=== PATIENT | male | born 1960 | race Caucasian/White ===

== ENCOUNTER → 2018-03-13 | Outpatient (CLI) | payer OTHER ==
[2018-03-13] MEDS: BUPIVACAINE 0.5% 50 ML VIAL. IJ (08:58)
[2018-03-13] MEDS: IOHEXOL 300 MG/ML 50 ML VIAL. IJ (08:58)
[2018-03-13] MEDS: methylPREDNISolone ACETATE 80 MG/ML VIAL. IM (08:59)
[2018-03-13] MEDS: LIDOCAINE WITH 8.4% SOD BICARB 3 ML DISP.SYRIN. INJ (08:59)
== END | disposition home or self-care (01) ==
LOC: RAD 08:05
DX: M16.12 Unilateral primary osteoarthritis, left hip (principal)
CPT/HCPCS: 20610; 77002; J1040; J3490; Q9967

== ENCOUNTER 2019-03-13 08:47 | Inpatient (IN) | payer OTHER ==
[~2019-03-13] VITALS: Ht 167.6 cm; Wt 63.5 kg
--- NOTE | 2019-03-13 09:14 | PHYS DOC ---
Adult General Chief Complaint Chief Complaint: CHEST PAIN HPI HPI Patient is a 59 year old male who presents with with Dr. Maradiaga office because he is needing a new hip when they noticed his blood pressures very high. Rupert wade's blood pressure is in the 200s over 100s. Patient is on 3 different blood pressure medications. Patient states he's been taking off his blood pressure medications. Patient states that for the last couple weeks he's been having chest pressure that comes and goes and it's right center of his chest. Patient states he also will have left arm tingling that comes and goes. Patient currently rates his chest pressure at a 7 out of 10. Review of Systems Review of Systems Constitutional: Denies fever or chills [] Eyes: Denies change in visual acuity, redness, or eye pain [] HENT: Denies nasal congestion or sore throat [] Respiratory: Denies cough or shortness of breath [] Cardiovascular: Mid Chest pressure and hypertension GI: Denies abdominal pain, nausea, vomiting, bloody stools or diarrhea [] : Denies dysuria or hematuria [] Musculoskeletal: Denies back pain or joint pain [] Integument: Denies rash or skin lesions [] Neurologic: Frontal headache, dizziness, denies focal weakness or sensory changes [] Endocrine: Denies polyuria or polydipsia [] All other systems were reviewed and found to be within normal limits, except as documented in this note. Current Medications Current Medications Current Medications Medications (Trade) Dose Ordered Sig/Guadalupe Start Time Stop Time Status Last Admin Dose Admin Aspirin (Dago Aspirin) 325 mg 1X ONCE 03/13/19 09:45 03/13/19 09:46 DC 03/13/19 10:00 325 MG Clonidine HCl (Catapres) 0.1 mg 1X ONCE 03/13/19 09:15 03/13/19 09:16 DC 03/13/19 09:08 0.1 MG Fentanyl Citrate (Fentanyl 2ml Vial) 50 mcg 1X ONCE 03/13/19 10:30 03/13/19 10:31 DC 03/13/19 10:47 50 MCG Sodium Chloride 1,000 ml @ 1,000 mls/hr 1X ONCE 03/13/19 10:30 03/13/19 11:29 03/13/19 10:47 1,000 MLS/HR Allergies Allergies Allergies Coded Allergies Type Severity Reaction Last Updated Verified No Known Drug Allergies 03/13/18 No Physical Exam Physical Exam Constitutional: Well developed, well nourished, no acute distress, non-toxic appearance. Hypertensive. [] HENT: Normocephalic, atraumatic, bilateral external ears normal, oropharynx moist, no oral exudates, nose normal. [] Eyes: PERRLA, EOMI, conjunctiva normal, no discharge. [] Neck: Normal range of motion, no tenderness, supple, no stridor. [] Cardiovascular:Heart rate regular rhythm, no murmur. [] Lungs & Thorax: Bilateral breath sounds clear to auscultation [] Abdomen: Bowel sounds normal, soft, no tenderness, no masses, no pulsatile masses. [] Skin: Warm, dry, no erythema, no rash. [] Back: No tenderness, no CVA tenderness. [] Extremities: No tenderness, no cyanosis, no clubbing, ROM intact, no edema. [] Neurologic: Alert and oriented X 3, normal motor function, normal sensory function, no focal deficits noted. [] Psychologic: Affect normal, judgement normal, mood normal. [] Current Patient Data Vital Signs Vital Signs Date Time Temp Pulse Resp B/P (MAP) Pulse Ox O2 Delivery O2 Flow Rate FiO2 03/13/19 10:47 16 97 Room Air 03/13/19 09:08 50 209/128 03/13/19 08:50 98.4 98.4 Lab Values Laboratory Tests Test 03/13/19 09:10 White Blood Count 5.8 x10^3/uL (4.0-11.0) Red Blood Count 5.04 x10^6/uL (4.30-5.70) Hemoglobin 14.9 g/dL (13.0-17.5) Hematocrit 42.9 % (39.0-53.0) Mean Corpuscular Volume 85 fL (79-100) Mean Corpuscular Hemoglobin 30 pg (25-35) Mean Corpuscular Hemoglobin Concent 35 g/dL (31-37) Red Cell Distribution Width 14.1 % (11.5-14.5) Platelet Count 199 x10^3/uL (140-400) Neutrophils (%) (Auto) 66 % (31-73) Lymphocytes (%) (Auto) 27 % (24-48) Monocytes (%) (Auto) 6 % (0-9) Eosinophils (%) (Auto) 1 % (0-3) Basophils (%) (Auto) 0 % (0-3) Neutrophils # (Auto) 3.8 x10^3/uL (1.8-7.7) Lymphocytes # (Auto) 1.6 x10^3/uL (1.0-4.8) Monocytes # (Auto) 0.3 x10^3/uL (0.0-1.1) Eosinophils # (Auto) 0.1 x10^3/uL (0.0-0.7) Basophils # (Auto) 0.0 x10^3/uL (0.0-0.2) Prothrombin Time 12.0 SEC (11.7-14.0) Prothrombin Time INR 0.9 (0.8-1.1) Sodium Level 145 mmol/L (136-145) Potassium Level 3.9 mmol/L (3.5-5.1) Chloride Level 108 mmol/L (98-107) H Carbon Dioxide Level 28 mmol/L (21-32) Anion Gap 9 (6-14) Blood Urea Nitrogen 13 mg/dL (8-26) Creatinine 0.8 mg/dL (0.7-1.3) Estimated GFR (Cockcroft-Gault) 98.3 BUN/Creatinine Ratio 16 (6-20) Glucose Level 93 mg/dL (70-99) Calcium Level 9.1 mg/dL (8.5-10.1) Total Bilirubin 0.3 mg/dL (0.2-1.0) Aspartate Amino Transferase (AST) 21 U/L (15-37) Alanine Aminotransferase (ALT) 27 U/L (16-63) Alkaline Phosphatase 63 U/L (46-116) Troponin I Quantitative < 0.017 ng/mL (0.000-0.055) NF-Gnh-Q-Type Natriuretic Peptide 67 pg/mL (0-124) Total Protein 7.5 g/dL (6.4-8.2) Albumin 3.5 g/dL (3.4-5.0) Albumin/Globulin Ratio 0.9 (1.0-1.7) L Laboratory Tests 03/13/19 09:10 Laboratory Tests 03/13/19 09:10 EKG EKG NSR and no STEMI[] Interpretation Time: [address] Sadler Radiology/Procedures Radiology/Procedures [] Impressions: [facility] [address] [place] [address] IMAGING REPORT Signed PATIENT: RASHAD KAMINSKI ACCOUNT: [id number] : 1960 LOCATION: ER AGE: 59 SEX: M EXAM STATUS: REG ER ORD. PHYSICIAN: HUAN HO APRN REASON: chest pressure PROCEDURE: PORTABLE CHEST 1V PORTABLE CHEST 1V History: Chest pressure. Comparison: None. Findings: No consolidation or pleural effusion. Normal heart size. Mild elevation of the right hemidiaphragm. Impression: 1. No acute cardiopulmonary process. Electronically signed by: Taj Thomas DO (03/13/2019 9:20 AM) [id number] DICTATED and SIGNED BY: TAJ THOMAS DO DATE: 03/13/[address]19 [id number] [place] [address] IMAGING REPORT Signed PATIENT: RASHAD KAMINSKI ACCOUNT: [id number] : 1960 LOCATION: ER AGE: 59 SEX: M EXAM STATUS: REG ER ORD. PHYSICIAN: HUAN HO APRN REASON: dizziness PROCEDURE: CT HEAD WO CONTRAST EXAM: CT Head without IV contrast CLINICAL HISTORY: Dizziness COMPARISON: None. TECHNIQUE: Routine CT of the head without contrast. Soft tissues and bone windows were reviewed. PQRS compliance statement - One or more of the following individualized dose reduction techniques were utilized for this study: 1. Automated exposure control 2. Adjustment of the mA and/or kV according to patient size 3. Use of iterative reconstruction technique FINDINGS: There is no evidence of hemorrhage, mass or extra-axial fluid collection. Uriarte-white differentiation is maintained with no evidence of edema. There is no mass effect or shift of the intracranial structures. The ventricles, basilar cisterns and cortical sulci are normal in size and configuration for the patients stated age. The cerebellum and brainstem are unremarkable. The calvarium demonstrates no evidence of fracture or focal lesion. There is normal aeration of the visualized paranasal sinuses and mastoid air cells. The visualized portions of the orbits are normal. IMPRESSION: No evidence for acute intracranial process. Electronically signed by: Lance Sanders MD (03/13/2019 10:08 AM) [id number] DICTATED and SIGNED BY: LANCE SANDERS MD DATE: 03/13/19 1008 Course & Med Decision Making Course & Med Decision Making Patient is a 59 year old male who presents with Police custody and came from Dr. Maradiaga office because he is needing a new hip when they noticed his blood pressures very high. Patient's blood pressure is in the 200s over 100s. Patient is on 3 different blood pressure medications. Patient states he's been taking off his blood pressure medications. Patient states that for the last couple weeks he's been having chest pressure that comes and goes and it's right center of his chest. Patient states he also will have left arm tingling that comes and goes. Patient currently rates his chest pressure at a 7 out of 10. Alert and oriented. Skin pink warm and dry. Lungs are clear to auscultation all lobes. EKG shows normal sinus rhythm. Patient states he also has a slight frontal lobe headache. PERRLA. Speaks in full clear sentences. Patient denies any weaknesses, visual changes, shortness of air, nausea, vomiting or diaphoresis, abdominal pain. Abdomen is soft and nontender. No extremity swelling. Afebrile. Chest x-ray shows no acute findings. Blood pressure after clonidine is 180/118. 1024: Blood pressure now I60/120. CT head shows no acute findings. Blood work unremarkable. Patient states he is still having dizziness just laying in bed with frontal headache. Because patients symptoms are unchanged with his blood pressure lowered, I will admit him and consult cardiology. I have spoken to Dr Wallace for admission. Dragon Disclaimer BusyFlowon Disclaimer This electronic medical record was generated, in whole or in part, using a voice recognition dictation system. The HEART Score for CP Pts HEART Score for Chest Pain: HEART Score for Chest Pain Response (Comments) Value History Slighlty/Non-Suspicious 0 ECG Normal 0 Age >45 - < 65 1 Risk Factors 1 or 2 Risk Factors 1 Troponin < Normal Limit 0 Total 2 Risk Factors: Risk Factors: DM, Current or recent (<one month) smoker, HTN, HLP, family history of CAD, obesity. Risk Scores: Score 0 - 3: 2.5% MACE over next 6 weeks - Discharge Home Score 4 - 6: 20.3% MACE over next 6 weeks - Admit for Clinical Observation Score 7 - 10: 72.7% MACE over next 6 weeks - Early Invasive Strategies Departure Departure Impression: Primary Impression: Chest pain Additional Impressions: Hypertension Dizziness Disposition: ADMITTED INPATIENT Admitting Physician: HIMDeborah Condition: STABLE Referrals: NO PCP (PCP) Problem Qualifiers Primary Impression: Chest pain Chest pain type: unspecified Qualified Codes: R07.9 - Chest pain, unspecified Additional Impressions: Hypertension Hypertension type: essential hypertension Qualified Codes: I10 - Essential (primary) hypertension HUAN HO CONVERSION DEVELOPER Mar 13, 2019 09:14
[2019-03-13] MEDS ORDERED: cloNIDine HCL 0.1 MG TABLET PO ONE (09:15)
--- NOTE | 2019-03-13 09:23 | RAD ---
PORTABLE CHEST 1V History: Chest pressure. Comparison: None. Findings: No consolidation or pleural effusion. Normal heart size. Mild elevation of the right hemidiaphragm. Impression: 1. No acute cardiopulmonary process. Electronically signed by: Taj Thomas DO (03/13/2019 9:20 AM) [id number]
[2019-03-13 09:28] LABS: CALCIUM 9.1 mg/dL (8.5-10.1); CREATININE 0.8 mg/dL (0.7-1.3); GFR 98.3; POTASSIUM 3.9 mmol/L (3.5-5.1)
[2019-03-13 09:34] LABS: ALBUMIN 3.5 g/dL (3.4-5.0); ALBUMIN/GLOBULIN RATIO 0.9 (1.0-1.7); TOTAL BILIRUBIN 0.3 mg/dL (0.2-1.0); TOTAL PROTEIN 7.5 g/dL (6.4-8.2)
[2019-03-13 09:36] LABS: BASO % 0 % (0-3); EOS # 0.1 x10^3/uL (0.0-0.7); EOS % 1 % (0-3); HEMATOCRIT 42.9 % (39.0-53.0); HEMOGLOBIN 14.9 g/dL (13.0-17.5); LYMPH # 1.6 x10^3/uL (1.0-4.8); LYMPH % 27 % (24-48); MEAN CORPUSCULAR HEMOGLOBIN 30 pg (25-35); MEAN CORPUSCULAR HGB CONC 35 g/dL (31-37); MEAN CORPUSCULAR VOLUME 85 fL (79-100); MONO # 0.3 x10^3/uL (0.0-1.1); MONO % 6 % (0-9); NEUT # 3.8 x10^3/uL (1.8-7.7); NEUT % 66 % (31-73); PLATELET COUNT 199 x10^3/uL (140-400); RED BLOOD COUNT 5.04 x10^6/uL (4.30-5.70); RED CELL DISTRIBUTION WIDTH 14.1 % (11.5-14.5); WHITE BLOOD COUNT 5.8 x10^3/uL (4.0-11.0)
[2019-03-13] MEDS ORDERED: ASPIRIN 325 MG TABLET PO ONE (09:45)
--- NOTE | 2019-03-13 10:11 | RAD ---
EXAM: CT Head without IV contrast CLINICAL HISTORY: Dizziness COMPARISON: None. TECHNIQUE: Routine CT of the head without contrast. Soft tissues and bone windows were reviewed. PQRS compliance statement - One or more of the following individualized dose reduction techniques were utilized for this study: 1. Automated exposure control 2. Adjustment of the mA and/or kV according to patient size 3. Use of iterative reconstruction technique FINDINGS: There is no evidence of hemorrhage, mass or extra-axial fluid collection. Urirate-white differentiation is maintained with no evidence of edema. There is no mass effect or shift of the intracranial structures. The ventricles, basilar cisterns and cortical sulci are normal in size and configuration for the patients stated age. The cerebellum and brainstem are unremarkable. The calvarium demonstrates no evidence of fracture or focal lesion. There is normal aeration of the visualized paranasal sinuses and mastoid air cells. The visualized portions of the orbits are normal. IMPRESSION: No evidence for acute intracranial process. Electronically signed by: Lance Dee MD (03/13/2019 10:08 AM) [id number]
[2019-03-13] MEDS ORDERED: CALC1TAB64 PO (10:22)
[2019-03-13] MEDS ORDERED: IV NORMAL SALINE 1000ML BAG 1,000 ML IV ONE (10:30)
[2019-03-13] MEDS ORDERED: fentaNYL PF VIAL 100 MCG/2 ML VIAL IV ONE (10:30)
--- NOTE | 2019-03-13 10:37 | EKG ---
[facility] [address] [place] [address] Test Date: 2019-03-13 Test Time: 08:54:19 Pat Name: RASHAD KAMINSKI Department: Room: Gender: M Specimen Accessioner: : 1960 Requested By: HUAN HO Order Number: [id number] Reading MD: Measurements Intervals Mchenry Rate: 68 P: 0 VT: 130 QRS: 28 QRSD: 92 T: 53 QT: 384 QTc: 409 Interpretive Statements SINUS RHYTHM NO SPECIFIC ECG ABNORMALITIES RI6.01 No previous ECG available for comparison
[2019-03-13] MEDS ORDERED: ACETAMINOPHEN 325 MG TABLET. PO PRN (11:00)
[2019-03-13] MEDS ORDERED: ONDANSETRON PF 4 MG/2 ML VIAL. IV PRN (11:00)
[2019-03-13] MEDS ORDERED: fentaNYL PF VIAL 100 MCG/2 ML VIAL IV PRN (11:00)
[2019-03-13] MEDS ORDERED: NITROGLYCERIN SUBLINGUAL 0.4 MG BOTTLE OF 25. SL PRN (11:00)
[2019-03-13 12:25] VITALS: BP 142/75
[2019-03-13] MEDS ORDERED: GABA600T7 PO (12:56)
[2019-03-13] MEDS ORDERED: LISI-130 PO (12:58)
[2019-03-13] MEDS ORDERED: NAPR-514 PO (12:58)
[2019-03-13] MEDS ORDERED: HYDR-2145 PO (12:58)
[2019-03-13] MEDS ORDERED: SERT25TA PO (13:01)
[2019-03-13] MEDS ORDERED: PNV1TABL31 PO (13:01)
[2019-03-13] MEDS ORDERED: HYDR25TA PO (13:15)
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
[2019-03-13] MEDS ORDERED: hydrOXYzine 25 MG TABLET PO PRN (13:45)
[2019-03-13 15:00] VITALS: BP 130/94
--- NOTE | 2019-03-13 15:00 | PDOC2 ---
CONSULT Date of Consult Date of Consult DATE: 03/13/19 TIME: 14:59 Reason for Consult Reason for Consult: Chest pain and hypertension Referring Physician Referring Physician: Dr. Wallace Identification/Chief Complaint Chief Complaint Chest pain and headache Source Source: Patient History of Present Illness Reason for Visit: 59-year-old male was found to have elevated blood pressure when he presented to orthopedic office and admitted for further management. He complained of intermittent episodes of retrosternal chest pain that he described as sharp in n ature not related to exertion or food intake. He also complained of headaches and dizziness. He denied any orthopnea/PND, palpitations or syncope. He claimed compliance with his medications. Past Medical History Past Medical History Osteoarthritis Hypertension Macular degeneration Family History Family History Positive for coronary artery disease and hypertension Social History Social History Patient denied any smoking alcohol or drug use Current Problem List Problem List Problems Medical Problems: (1) Chest pain Status: Acute (2) Dizziness Status: Acute (3) Hypertension Status: Acute Current Medications Current Medications Current Medications Clonidine HCl (Catapres) 0.1 mg 1X ONCE PO Last administered on 03/13/19at 09:08; Start 03/13/19 at 09:15; Stop 03/13/19 at 09:16; Status DC Aspirin (Dago Aspirin) 325 mg 1X ONCE PO Last administered on 03/13/19at 10:00; Start 03/13/19 at 09:45; Stop 03/13/19 at 09:46; Status DC Sodium Chloride 1,000 ml @ 1,000 mls/hr 1X ONCE IV Last administered on 03/13/19at 10:47; Start 03/13/19 at 10:30; Stop 03/13/19 at 11:29; Status DC Fentanyl Citrate (Fentanyl 2ml Vial) 50 mcg 1X ONCE IV Last administered on 03/13/19at 10:47; Start 03/13/19 at 10:30; Stop 03/13/19 at 10:31; Status DC Ondansetron HCl (Zofran) 4 mg PRN Q8HRS PRN IV NAUSEA/VOMITING; Start 03/13/19 at 11:00; Stop 03/14/19 at 10:59 Fentanyl Citrate (Fentanyl 2ml Vial) 50 mcg PRN Q1HR PRN IV PAIN; Start 03/13/19 at 11:00; Stop 03/14/19 at 10:59 Acetaminophen (Tylenol) 650 mg PRN Q4HRS PRN PO FEVER; Start 03/13/19 at 11:00; Stop 03/14/19 at 10:59 Nitroglycerin (Nitrostat) 0.4 mg PRN Q5MIN PRN SL CHEST PAIN; Start 03/13/19 at 11:00; Stop 03/14/19 at 10:59 Hydrochlorothiazide (Hydrodiuril) 25 mg DAILY PO ; Start 03/14/19 at 09:00 Lisinopril (Prinivil) 40 mg DAILY PO ; Start 03/14/19 at 09:00 Hydroxyzine HCl (Atarax) 50 mg PRN QHS PRN PO antihistamine; Start 03/13/19 at 13:45 Naproxen (Naprosyn) 500 mg BID PO ; Start 03/13/19 at 21:00 Sertraline HCl (Zoloft) 25 mg HS PO ; Start 03/13/19 at 21:00 Calcium/Vitamin D (Oscal D 500mg/ 200uts) 1 tab DAILYWBKFT PO ; Start 03/14/19 at 08:00 Gabapentin (Neurontin) 1,200 mg BID PO ; Start 03/13/19 at 21:00 Multivit/ Folic Acid/Iron (Multivitamin ) 1 tab DAILY PO ; Start 03/14/19 at 09:00 Acetaminophen/ Hydrocodone Bitart (Lortab 5/325) 1 tab PRN Q4HRS PRN PO PAIN; Start 03/13/19 at 13:45 Active Scripts Active Reported Hydroxyzine Hcl 25 Mg Tablet 2 Tab PO HS PRN Zoloft (Sertraline Hcl) 25 Mg Tablet 25 Mg PO HS Plus Tablet (Pnv With Ca,No.72/Iron/Fa) 1 Each Tablet 1 Tab PO DAILY Naproxen 500 Mg Tablet 1 Tab PO BID Lisinopril 40 Mg Tablet 1 Tab PO DAILY Hydrochlorothiazide Tablet (Hydrochlorothiazide) 25 Mg Tablet 25 Mg PO DAILY Gabapentin 600 Mg Tablet 1,200 Mg PO BID Calcium 600 + Vit D 400 Tablet (Calcium Carbonate/Vitamin D3) 1 Each Tablet 1 Each PO DAILY Allergies Allergies: Coded Allergies: No Known Drug Allergies (Unverified , 03/13/18) ROS PSYCHOLOGICAL ROS: No: Hallucinations Eyes: No Loss of vision HEENT: No: Epistaxis Respiratory: No: Hemoptysis Gastrointestinal: No Vomiting, No Diarrhea Genitourinary: No Hematuria Neurological: No Seizures Skin: No Rash Physical Exam General: Alert, Oriented X3 HEENT: Atraumatic, PERRLA Lungs: Clear to auscultation Heart: Regular rate Abdomen: Soft Extremities: No edema Psych/Mental Status: Mood NL Vitals VITALS Vital Signs Date Time Temp Pulse Resp B/P (MAP) Pulse Ox O2 Delivery O2 Flow Rate FiO2 03/13/19 12:25 97.4 59 18 142/75 (97) 98 Room Air 97.4 Labs Labs Laboratory Tests Test 03/13/19 09:10 03/13/19 14:20 White Blood Count 5.8 x10^3/uL (4.0-11.0) Red Blood Count 5.04 x10^6/uL (4.30-5.70) Hemoglobin 14.9 g/dL (13.0-17.5) Hematocrit 42.9 % (39.0-53.0) Mean Corpuscular Volume 85 fL (79-100) Mean Corpuscular Hemoglobin 30 pg (25-35) Mean Corpuscular Hemoglobin Concent 35 g/dL (31-37) Red Cell Distribution Width 14.1 % (11.5-14.5) Platelet Count 199 x10^3/uL (140-400) Neutrophils (%) (Auto) 66 % (31-73) Lymphocytes (%) (Auto) 27 % (24-48) Monocytes (%) (Auto) 6 % (0-9) Eosinophils (%) (Auto) 1 % (0-3) Basophils (%) (Auto) 0 % (0-3) Neutrophils # (Auto) 3.8 x10^3/uL (1.8-7.7) Lymphocytes # (Auto) 1.6 x10^3/uL (1.0-4.8) Monocytes # (Auto) 0.3 x10^3/uL (0.0-1.1) Eosinophils # (Auto) 0.1 x10^3/uL (0.0-0.7) Basophils # (Auto) 0.0 x10^3/uL (0.0-0.2) Prothrombin Time 12.0 SEC (11.7-14.0) Prothromb Time International Ratio 0.9 (0.8-1.1) Sodium Level 145 mmol/L (136-145) Potassium Level 3.9 mmol/L (3.5-5.1) Chloride Level 108 mmol/L (98-107) Carbon Dioxide Level 28 mmol/L (21-32) Anion Gap 9 (6-14) Blood Urea Nitrogen 13 mg/dL (8-26) Creatinine 0.8 mg/dL (0.7-1.3) Estimated GFR (Cockcroft-Gault) 98.3 BUN/Creatinine Ratio 16 (6-20) Glucose Level 93 mg/dL (70-99) Calcium Level 9.1 mg/dL (8.5-10.1) Total Bilirubin 0.3 mg/dL (0.2-1.0) Aspartate Amino Transf (AST/SGOT) 21 U/L (15-37) Alanine Aminotransferase (ALT/SGPT) 27 U/L (16-63) Alkaline Phosphatase 63 U/L (46-116) Troponin I Quantitative < 0.017 ng/mL (0.000-0.055) < 0.017 ng/mL (0.000-0.055) XP-Umf-T-Type Natriuretic Peptide 67 pg/mL (0-124) Total Protein 7.5 g/dL (6.4-8.2) Albumin 3.5 g/dL (3.4-5.0) Albumin/Globulin Ratio 0.9 (1.0-1.7) Laboratory Tests Test 03/13/19 09:10 03/13/19 14:20 White Blood Count 5.8 x10^3/uL (4.0-11.0) Red Blood Count 5.04 x10^6/uL (4.30-5.70) Hemoglobin 14.9 g/dL (13.0-17.5) Hematocrit 42.9 % (39.0-53.0) Mean Corpuscular Volume 85 fL (79-100) Mean Corpuscular Hemoglobin 30 pg (25-35) Mean Corpuscular Hemoglobin Concent 35 g/dL (31-37) Red Cell Distribution Width 14.1 % (11.5-14.5) Platelet Count 199 x10^3/uL (140-400) Neutrophils (%) (Auto) 66 % (31-73) Lymphocytes (%) (Auto) 27 % (24-48) Monocytes (%) (Auto) 6 % (0-9) Eosinophils (%) (Auto) 1 % (0-3) Basophils (%) (Auto) 0 % (0-3) Neutrophils # (Auto) 3.8 x10^3/uL (1.8-7.7) Lymphocytes # (Auto) 1.6 x10^3/uL (1.0-4.8) Monocytes # (Auto) 0.3 x10^3/uL (0.0-1.1) Eosinophils # (Auto) 0.1 x10^3/uL (0.0-0.7) Basophils # (Auto) 0.0 x10^3/uL (0.0-0.2) Prothrombin Time 12.0 SEC (11.7-14.0) Prothromb Time International Ratio 0.9 (0.8-1.1) Sodium Level 145 mmol/L (136-145) Potassium Level 3.9 mmol/L (3.5-5.1) Chloride Level 108 mmol/L (98-107) Carbon Dioxide Level 28 mmol/L (21-32) Anion Gap 9 (6-14) Blood Urea Nitrogen 13 mg/dL (8-26) Creatinine 0.8 mg/dL (0.7-1.3) Estimated GFR (Cockcroft-Gault) 98.3 BUN/Creatinine Ratio 16 (6-20) Glucose Level 93 mg/dL (70-99) Calcium Level 9.1 mg/dL (8.5-10.1) Total Bilirubin 0.3 mg/dL (0.2-1.0) Aspartate Amino Transf (AST/SGOT) 21 U/L (15-37) Alanine Aminotransferase (ALT/SGPT) 27 U/L (16-63) Alkaline Phosphatase 63 U/L (46-116) Troponin I Quantitative < 0.017 ng/mL (0.000-0.055) < 0.017 ng/mL (0.000-0.055) AF-Waf-U-Type Natriuretic Peptide 67 pg/mL (0-124) Total Protein 7.5 g/dL (6.4-8.2) Albumin 3.5 g/dL (3.4-5.0) Albumin/Globulin Ratio 0.9 (1.0-1.7) Assessment/Plan Assessment/Plan 1. Accelerated hypertension. Blood pressure much better controlled since admission. He is slightly bradycardic. Continue lisinopril and add Norvasc. 2. Chest pain with atypical features, most probably musculoskeletal since this is reproducible to palpation. Myocardial infarction has been ruled out. 2-D echo showed normal LV systolic function without any wall motion abnormalities. We will consider ischemic evaluation as an outpatient. Thank you for your consultation. GONZÁLEZ GREEN MD Mar 13, 2019 15:00
--- NOTE | 2019-03-13 15:12 | CARD ---
MR#: [id number] Date of Study: 03/13/2019 Ordering Physician: GONZÁLEZ GREEN, Referring Physician: Michael ORANTES: Kate Aguirregoran APPROVED REPORT EXAM: Two-dimensional and M-mode echocardiogram with Doppler and color Doppler. Other Information Quality : Average INDICATION Chest Pain 2D DIMENSIONS RVDd3.3 (2.9-3.5cm)Left Atrium(2D)3.4 (1.6-4.0cm) IVSd0.8 (0.7-1.1cm)Aortic Root(2D)3.0 (2.0-3.7cm) LVDd4.6 (3.9-5.9cm)LVOT Diameter2.0 (1.8-2.4cm) PWd0.8 (0.7-1.1cm)LVDs2.7 (2.5-4.0cm) FS (%) 42.3 %SV71.8 ml LVEF(%)73.4 (>50%) Aortic Valve AoV Peak Francisco.92.7cm/sAoV VTI23.7cm AO Peak GR.3.4mmHgLVOT VTI 15.31cm AO Mean GR.2mmHgAI P 1/2 Tltx082de Mitral Valve MV E Ecgrmvna44.1cm/sMV DECEL ESNF362tx MV A Vsevgsrv71.3cm/sE/A Ratio1.4 TDI Lateral E' P. V9.65cm/sMedial E' P. V8.17cm/s E/Lateral E'5.5E/Medial E'6.5 Tricuspid Valve TR P. Ivzkpidr902gy/sRAP TMSOECRG0qbWe TR Peak Gr.08pkKxDHVP96nlKl Pulmonary Vein S1 Kilggoqw47.8cm/sS2 Txvntats53.15cm/s D2 Ebobauvz06.1cm/sPVa bbpcmfpa707cnqk LEFT VENTRICLE The left ventricle is normal size. There is normal left ventricular wall thickness. The left ventricu lar systolic function is normal. The Ejection Fraction is 55-60%. There is normal LV segmental wall m otion. Transmitral Doppler flow pattern is Grade II-pseudonormal filling dynamics. RIGHT VENTRICLE The right ventricle is normal size. There is normal right ventricular wall thickness. The right ventr icular systolic function is normal. ATRIA The left atrium size is normal. The right atrium size is normal. The interatrial septum is intact wit h no evidence for an atrial septal defect or patent foramen ovale as noted on 2-D or Doppler imaging. AORTIC VALVE The aortic valve is normal in structure and function. Doppler and Color Flow revealed trace aortic re gurgitation. There is no significant aortic valvular stenosis. MITRAL VALVE The mitral valve is normal in structure and function. There is no evidence of mitral valve prolapse. There is no mitral valve stenosis. Doppler and Color-flow revealed trace mitral regurgitation. TRICUSPID VALVE The tricuspid valve is normal in structure and function. Doppler and Color Flow revealed trace tricus pid regurgitation with an estimated PAP of 29 mmHg. There is no tricuspid valve prolapse or vegetatio n. There is no tricuspid valve stenosis. PULMONIC VALVE The pulmonic valve is not well visualized. Doppler and Color Flow revealed no pulmonic valvular regur gitation. GREAT VESSELS The aortic root is normal in size. The IVC is normal in size and collapses >50% with inspiration. PERICARDIAL EFFUSION There is no evidence of significant pericardial effusion. Critical Notification Critical Value: No <Conclusion> The left ventricular systolic function is normal. The Ejection Fraction is 55-60%. There is normal LV segmental wall motion. Trace aortic regurgitation. Trace mitral regurgitation. Trace tricuspid regurgitation with an estimated PAP of 29 mmHg. There is no evidence of significant pericardial effusion. Signed by : González Green, Electronically Approved : 03/13/2019 15:12:20
[2019-03-13] MEDS: HYDROcodone/APAP 5/325MG 1 TAB TABLET PO PRN ×2 (15:36→20:14)
[2019-03-13 19:40] VITALS: BP 136/93
[2019-03-13] MEDS: GABAPENTIN 400 MG CAPSULE. PO SCH (20:13)
[2019-03-13] MEDS: NAPROXEN 500 MG TABLET PO SCH (21:00)
[2019-03-13] MEDS ORDERED: SERTRALINE 25 MG TABLET. PO SCH (21:00)
[2019-03-13 23:30] VITALS: BP 111/77
[2019-03-14] MEDS: HYDROcodone/APAP 5/325MG 1 TAB TABLET PO PRN ×3 (00:28→15:18)
[2019-03-14 03:50] VITALS: BP 99/59
[2019-03-14 07:00] VITALS: BP 122/87
[2019-03-14] MEDS: GABAPENTIN 400 MG CAPSULE. PO SCH (07:47)
[2019-03-14] MEDS: NAPROXEN 500 MG TABLET PO SCH (07:49)
[2019-03-14] MEDS ORDERED: CALCIUM CARB/VIT D3 500/200 TABLET. PO SCH (08:00)
[2019-03-14] MEDS ORDERED: LISINOPRIL 20 MG TABLET PO SCH (09:00)
[2019-03-14] MEDS ORDERED: PRENATAL MULTIVITAMIN TABLET. PO SCH (09:00)
[2019-03-14] MEDS ORDERED: hydroCHLOROthiazide 25 MG TABLET PO SCH (09:00)
[2019-03-14] MEDS ORDERED: amLODIPine BESYLATE 5 MG TABLET PO SCH (09:00)
[2019-03-14 11:16] VITALS: BP 112/73
[2019-03-14] MEDS ORDERED: AMLO5TAB10 PO (13:14)
--- NOTE | 2019-03-14 13:24 | PDOC3 ---
Discharge Summary Visit Information Date of Admission: Mar 13, 2019 Date of Discharge: Mar 14, 2019 Final Diagnosis Problems Medical Problems: (1) Chest pain Status: Acute (2) Dizziness Status: Acute (3) Hypertension Status: Acute Brief Hospital Course Allergies Allergies Coded Allergies Type Severity Reaction Last Updated Verified No Known Drug Allergies 03/13/18 No Vital Signs Vital Signs Date Time Temp Pulse Resp B/P (MAP) Pulse Ox O2 Delivery O2 Flow Rate FiO2 03/14/19 11:16 98.0 79 18 112/73 (86) 95 Room Air 98.0 Lab Results Laboratory Tests Test 03/13/19 09:10 03/13/19 14:20 White Blood Count 5.8 x10^3/uL (4.0-11.0) Red Blood Count 5.04 x10^6/uL (4.30-5.70) Hemoglobin 14.9 g/dL (13.0-17.5) Hematocrit 42.9 % (39.0-53.0) Mean Corpuscular Volume 85 fL (79-100) Mean Corpuscular Hemoglobin 30 pg (25-35) Mean Corpuscular Hemoglobin Concent 35 g/dL (31-37) Red Cell Distribution Width 14.1 % (11.5-14.5) Platelet Count 199 x10^3/uL (140-400) Neutrophils (%) (Auto) 66 % (31-73) Lymphocytes (%) (Auto) 27 % (24-48) Monocytes (%) (Auto) 6 % (0-9) Eosinophils (%) (Auto) 1 % (0-3) Basophils (%) (Auto) 0 % (0-3) Neutrophils # (Auto) 3.8 x10^3/uL (1.8-7.7) Lymphocytes # (Auto) 1.6 x10^3/uL (1.0-4.8) Monocytes # (Auto) 0.3 x10^3/uL (0.0-1.1) Eosinophils # (Auto) 0.1 x10^3/uL (0.0-0.7) Basophils # (Auto) 0.0 x10^3/uL (0.0-0.2) Prothrombin Time 12.0 SEC (11.7-14.0) Prothromb Time International Ratio 0.9 (0.8-1.1) Sodium Level 145 mmol/L (136-145) Potassium Level 3.9 mmol/L (3.5-5.1) Chloride Level 108 mmol/L (98-107) Carbon Dioxide Level 28 mmol/L (21-32) Anion Gap 9 (6-14) Blood Urea Nitrogen 13 mg/dL (8-26) Creatinine 0.8 mg/dL (0.7-1.3) Estimated GFR (Cockcroft-Gault) 98.3 BUN/Creatinine Ratio 16 (6-20) Glucose Level 93 mg/dL (70-99) Calcium Level 9.1 mg/dL (8.5-10.1) Total Bilirubin 0.3 mg/dL (0.2-1.0) Aspartate Amino Transf (AST/SGOT) 21 U/L (15-37) Alanine Aminotransferase (ALT/SGPT) 27 U/L (16-63) Alkaline Phosphatase 63 U/L (46-116) Troponin I Quantitative < 0.017 ng/mL (0.000-0.055) < 0.017 ng/mL (0.000-0.055) HI-Kdi-S-Type Natriuretic Peptide 67 pg/mL (0-124) Total Protein 7.5 g/dL (6.4-8.2) Albumin 3.5 g/dL (3.4-5.0) Albumin/Globulin Ratio 0.9 (1.0-1.7) Laboratory Tests Test 03/13/19 14:20 Troponin I Quantitative < 0.017 ng/mL (0.000-0.055) Brief Hospital Course 59-year-old male hx of HTN who currently resides at a correctional facility for past 3 years was found to have elevated blood pressure when he presented to orthopedic office. He has complained of intermittent episodes of retrosternal chest pain that he described as sharp in nature not related to exertion or food intake. also reports dizziness. no palpitations or syncope. takes all meds as prescribed. EKG and trops negative in ER. hospitalist called for admission BP improved after adding norvasc. TTE without any Regional wall motion abnormalities and preserved EF. no events on tele. labs stable including trop. chest pain reproducible on palpation and seems more atypical. also component of high BP. cards will plan to see as outpatient. no plans for further inpatient testing. will dc back to correctional facility. PE: VSS GENERAL: No apparent distress. Alert and oriented. HEENT: Head normocephalic, atraumatic. NECK: Supple LUNGS: Clear to auscultation. HEART: RRR, S1, S2 present, pulses intact ABDOMEN: Soft, positive bowel sounds. EXTREMITIES: No cyanosis or edema. NEUROLOGIC: Normal speech, normal tone PSYCHIATRIC: Normal affect, normal mood. SKIN: No ulceration. Discharge Information Condition at Discharge: Stable Follow Up: Weeks (CARDIOLOGY CLINIC IN 2 WEEKS) Disposition/Orders: Other (ASSISTED) Scheduled Amlodipine Besylate (Amlodipine Besylate) 5 Mg Tablet, 5 MG PO DAILY for HTN for 30 Days, #30 Prescribed by: TRIXIE HOBSON MD on 03/14/19 1314 Calcium Carbonate/Vitamin D3 (Calcium 600 + Vit D 400 Tablet) 1 Each Tablet, 1 EACH PO DAILY, (Reported) Entered as Reported by: RORY YA RN on 03/13/19 1022 Last Action: Converted on 03/13/191332 by LAUREN VALLECILLO Gabapentin (Gabapentin) 600 Mg Tablet, 1,200 MG PO BID for NEUROGENIC PAIN, (Reported) Entered as Reported by: LAUREN VALLECILLO on 03/13/19 1256 Last Action: Converted on 03/13/191332 by LAUREN VALLECILLO Hydrochlorothiazide (Hydrochlorothiazide Tablet ) 25 Mg Tablet, 25 MG PO DAILY for DIURETIC, Ref 0 (Reported) Entered as Reported by: LAUREN VALLECILLO on 03/13/19 1258 Last Action: Continued on 03/13/19 131 by LAUREN VALLECILLO Lisinopril (Lisinopril) 40 Mg Tablet, 1 TAB PO DAILY for htn, #30 Ref 5 (Reported) Entered as Reported by: LAUREN VALLECILLO on 03/13/19 1258 Last Action: Continued on 03/13/19 1311 by LAUREN VALLECILLO Naproxen (Naproxen) 500 Mg Tablet, 1 TAB PO BID for htn, #60 Ref 1 (Reported) Entered as Reported by: LAUREN VALLECILLO on 03/13/19 1258 Last Action: Continued on 03/13/191332 by LAUREN VALLECILLO Pnv With Ca,No.72/Iron/Fa ( Plus Tablet) 1 Each Tablet, 1 TAB PO DAILY for vit., #30 Ref 11 (Reported) Entered as Reported by: LAUREN VALLECILLO on 03/13/19 130 Last Action: Converted on 03/13/191332 by LAUREN VALLECILLO Sertraline Hcl (Zoloft) 25 Mg Tablet, 25 MG PO HS for ANTI-DEPRESSANT, Ref 0 (Reported) Entered as Reported by: LAUREN VALLECILLO on 03/13/19 1301 Last Action: Continued on 03/13/191332 by LAUREN VALLECILLO Scheduled PRN Hydroxyzine Hcl (Hydroxyzine Hcl) 25 Mg Tablet, 2 TAB PO HS PRN for antihistamine, #30 (Reported) Entered as Reported by: LAUREN VALLECILLO on 03/13/19 1315 Last Action: Continued on 03/13/191332 by TRIXIE ALBA MD Mar 14, 2019 13:24
[2019-03-14 14:41] VITALS: BP 121/85
--- NOTE | 2019-03-14 16:41 | NUR ---
PATIENTS IV REMOVED AND TELE MONITOR OFF. PATIENT GIVEN PRESCRIPTION FOR AMLODIPINE. PATIENT INFORMED TO FOLLOW UP WITH CARDIOLOGY IN 2-4 WEEKS FOR ISCHEMIC WORKUP. PATIENT STABLE AT TIME OF DISCHARGE. SPOKE TO [facility]. PATIENT READY TO DISCHARGE TO FACILITY.
== END 2019-03-14 16:30 | DRG 313 ==
LOC: ER 08:47 → EEVIPCON 08:47 → 2 NORTH 10:27
PROVIDERS: ADMIT Internal Medicine; ATTEND Internal Medicine
DX: R07.89 Other chest pain (principal); C95.10 Chronic leukemia of unspecified cell type not having achieved remission; I10 Essential (primary) hypertension; Z96.649 Presence of unspecified artificial hip joint; M16.12 Unilateral primary osteoarthritis, left hip; H35.30 Unspecified macular degeneration; Z83.3 Family history of diabetes mellitus; Z82.49 Family history of ischemic heart disease and other diseases of the circulatory system
CPT/HCPCS: 36415; 70450; 71045; 80053; 83880; 84484; 85025; 85610; 87641; 93005; 93306; 96361; 96374; J3010; J7030; 99285-25; G0378

== ENCOUNTER → 2019-06-29 | Outpatient (CLI) | payer OTHER ==
[~2019-06-29] MED LIST: AMLO5TAB10 PO; CALC1TAB64 PO; GABA600T7 PO; HYDR-2145 PO; HYDR25TA PO; LISI-130 PO; NAPR-514 PO; PNV1TABL31 PO; REGADENOSON 0.4 MG/5 ML DISP.SYRIN. IV ONE; SERT25TA PO
--- NOTE | 2019-06-29 11:25 | RAD ---
MR#: [id number] Date of Study: 06/29/2019 Ordering Physician: GONZÁLEZ GREEN Referring Physician: MARTIN ANDERSEN Tech: RT Alem Haley) (N) APPROVED REPORT Test Type: Pharmacological Stress Nurse/Tech: Lizett Dill R.N. Test Indications: c/p Cardiac History: htn, [place]- no intervention Medications: See Electronic Medical Record Medical History: See Electronic Medical Record Resting ECG: SB w/ very slight ST elevation in lead II,III,V2-V3 Resting Heart Rate: 56 bpm Resting Blood Pressure: 123/74mmHg Pretest Chest Pain: angina Nurse/Tech Notes S1S2,lungs CTA. Pt states that he is having chest tightness/pressure scale 5/10 prior to test Consent: The procedure was explained to the patient in lay terms. Informed consent was witnessed. Jose Raul eout was entered into [facility]. History and Stress Test performed by RT Tera (R) (N) Pharm. Details Pharmacologic stress testing was performed using 0.4mg per 5ml of regadenoson given intravenously ove r 7-10 seconds. Stress Symptoms SOA, stomach cramps, nausea , h/a POST EXERCISE Reason for Termination: Infusion complete Max HR: 100 bpm Max Blood Pressure: 125/69mmHg Blood Pressure response to exercise: Normal blood pressure response during stress. Heart Rate response to exercise: wnl Chest Pain: Yes. no increase from abnormal baseline Arrhythmia: No. ST Change: No. no changes from abnormal baseline INTERPRETATION Stress EKG Conclusion: Baseline EKG showed sinus rhythm. No ischemic changes at peak stress. No arr hythmias. Imaging Protocol IMAGE PROTOCOL: Rest Tc-99m/stress Tc-99m 1 day Rest: Stress: Viability: Radiopharm.Tc99m CmoixosfnWf61y Sestamibi Dose10.5mCi 33mCi Duration 13min. 13min. Img Date 06/29/2019 06/29/2019 Inj-Img Ucmw27xxj. 60min. Rest Admin Site:IV - Left AntecubitalAdministrator:ANGELA Chandler Stress Admin Site: IV - Left AntecubitalAdministrator: Russell Pierson [facility] STRESS DATA End Diast. Vol.81.0mlLVEDV index BSA49.0ml End Syst. Vol.22.0mlLVESV index BSA13.0ml Myocardial Xouv810.0gEject. Layculzb27.0% Stress Scores Regional WT2.00Summed WT10.00 Regional WM0.00Summed WM3.00 Study quality was good. Left Ventricular size was Normal at Rest and Stress. Lung uptake was . Left Ventricular ejection fraction is 73%. The rest and stress images show normal perfusion, normal contraction and thickening. LV Perf. Quant 17 Seg. SSS0.00 17 Seg. SRS0.00 17 Seg. SDS0.00 Stress Defect Extent (% LAD)0.00Rest Defect Extent (% LAD)0.00Rev. Defect Extent (% LAD)0.00 Stress Defect Extent (% LCX) 0.00Rest Defect Extent (% LCX)0.00Rev. Defect Extent (% LCX)0.00 Stress Defect Extent (% RCA)0.00Rest Defect Extent (% RCA)0.00Rev. Defect Extent (% RCA)0.00 Stress Defect Extent (% AZUL)0.00Rest Defect Extent (% AZUL)0.00Rev. Defect Extent (% AZUL)0.00 Conclusion 1. Regadenoson cardioisotope stress test did not show any evidence of ischemia or infarct. 2. Normal left ventricular systolic function with ejection fraction calculated at 73%. 3. Low risk for cardiac events. Signed by : González Green, Electronically Approved : 06/29/2019 11:25:24
--- NOTE | 2019-06-29 16:48 | RAD ---
MR#: [id number] Date of Study: 06/29/2019 Ordering Physician: GONZÁLEZ GREEN, Referring Physician: GONZÁLEZ GREEN, Tech: ELDON Yeager, RDMS, RTR APPROVED REPORT Patient Location: OUT-PATIENT Risk Factors Hypertension Findings Technically difficult study. The bilateral proximal renal arteries were not well visualized. The mid and distal renal arteries dem onstrate normal velocities. Normal resistive indices and renal to aortic ratios noted based on the mi d velocities. The aorta has moderate diffuse irregularities with normal velocities. The grayscale images of the bilateral kidneys are grossly unremarkable with the exception of mild cor tical hypertrophy suggestive of medical renal disease. Critical Notification Critical Value: No <Conclusion> 1. Technically limited study but within these limitations no obvious renal artery stenosis identified . Signed by : Shorty Roberts, Electronically Approved : 06/29/2019 16:48:36
== END | disposition home or self-care (01) ==
LOC: NM 07:42 → EEVIPCON 08:30
PROVIDERS: ATTEND Internal Medicine Cardiovascular Disease
DX: I10 Essential (primary) hypertension (principal); I25.2 Old myocardial infarction
CPT/HCPCS: 78452; 93017; 93975; A9500; J2785

== ENCOUNTER 2019-09-29 07:48 | Outpatient (CLI) | payer OTHER ==
[~2019-09-29] VITALS: Ht 167.6 cm; Wt 59.0 kg
[2019-09-29] VITALS (7 sets, daily range): BP systolic 103–159; BP diastolic 66–105
[~2019-09-29 07:48] MED LIST changes: +IODIXANOL 320 MG/ML 100 ML VIAL. ONE; +LIDOCAINE 1% PF 2 ML VIAL. ONE; -REGADENOSON 0.4 MG/5 ML DISP.SYRIN. IV ONE
[2019-09-29] MEDS ORDERED: AMLO10TA8 PO (08:16)
[2019-09-29] MEDS ORDERED: METO100T7 PO (08:16)
[2019-09-29 08:29] LABS: HEMATOCRIT 41.9 % (39.0-53.0); RED BLOOD COUNT 4.83 x10^6/uL (4.30-5.70); RED CELL DISTRIBUTION WIDTH 13.4 % (11.5-14.5)
[2019-09-29 08:38] LABS: CALCIUM 8.9 mg/dL (8.5-10.1); CREATININE 0.9 mg/dL (0.7-1.3); GFR 85.8; POTASSIUM 3.8 mmol/L (3.5-5.1)
[2019-09-29 08:48] LABS: PROTHROMBIN TIME PATIENT 12.2 SEC (11.7-14.0)
[2019-09-29] MEDS ORDERED: HEPARIN for IV BOLUS 10,000 UNIT/10 ML VIAL. IART ONE (09:15)
[2019-09-29] MEDS ORDERED: MIDAZOLAM HCL/PF 2 MG/2 ML VIAL. IV ONE (09:15)
[2019-09-29] MEDS ORDERED: VERAPAMIL 5 MG/2 ML VIAL. IART ONE (09:15)
[2019-09-29] MEDS ORDERED: LIDOCAINE 1% PF 2 ML VIAL. INJ ONE (09:15)
[2019-09-29] MEDS ORDERED: fentaNYL PF VIAL 100 MCG/2 ML VIAL IV ONE (09:15)
[2019-09-29] MEDS ORDERED: IOHEXOL 300 MG/ML 100ML VIAL. IART ONE (09:15)
[2019-09-29] MEDS ORDERED: NITROGLYCERIN 200 MCG/2 ML SYRINGE FOR CATH/VASC LAB. IART ONE (09:15)
[2019-09-29] MEDS ORDERED: MIDAZOLAM HCL/PF 2 MG/2 ML VIAL. ONE (09:23)
[2019-09-29] MEDS ORDERED: HEPARIN for IV BOLUS 10,000 UNIT/10 ML VIAL. ONE (09:23)
[2019-09-29] MEDS ORDERED: fentaNYL PF VIAL 100 MCG/2 ML VIAL ONE (09:23)
[2019-09-29] MEDS ORDERED: VERAPAMIL 5 MG/2 ML VIAL. ONE (09:23)
[2019-09-29] MEDS ORDERED: NITROGLYCERIN 200 MCG/2 ML SYRINGE FOR CATH/VASC LAB. ONE (09:24)
[2019-09-29] MEDS ORDERED: IODIXANOL 320 MG/ML 100 ML VIAL. IV ONE (10:00)
[2019-09-29] MEDS ORDERED: IV 1/2 NORMAL SALINE 1,000 ML IV SCH (10:00)
--- NOTE | 2019-09-29 10:05 | PDOC ---
MODERATE SEDATION ASSESSMENT RISKS/ALTERNATIVES Risks/Alternatives Risks and alternatives of this type of sedation and procedure discussed with: RISK/ALTERNATIVES: Patient H & P ON CHART H & P H & P on chart and reviewed for co-morbid conditions and appropriate labs. H&P ON CHART: Yes STATUS PREG STATUS ASSESSED: N/A MEDS/ALLERGIES REVIEWED Meds/Allergies Reviewed Medications and Allergies including time and route of recently administered narcotics and sedatives. MEDS/ALLERGIES REVIEWED: Yes ASA RATING ASA RATING: II AIRWAY ASSESSMENT Airway Assessment Airway patency, oral function limitations, presence of caps, crowns, dentures, partials, and ability to extend neck assessed. AIRWAY ASSESSMENT: Yes MALLAMPATI SCORE MALLAMPATI SCORE: II PRE-SEDATION ASSESSMENT PRE-SEDATION ASSESSMENT: Yes GONZÁLEZ GREEN MD Sep 29, 2019 10:05
--- NOTE | 2019-09-29 10:11 | CARD ---
MR#: [id number] Date of Study: 09/29/2019 Ordering Physician: GONZÁLEZ GREEN, Referring Physician: GONZÁLEZ GREEN Tech: ANSELMO CALIXTO RTR APPROVED REPORT Technologist: ANSELMO CALIXTO RTR Nurse: Lashawn Khan RN Procedure(s) performed: Left heart catheterization, selective coronary angiography and left ventricul ography via right transradial approach MODERATE SEDATION TIME: 20 MINUTES FLUORO TIME: 2.5 MINUTES DOSE: 20.54 Gycm2 CONTRAST: 75 CC'S vISIPAQUE INDICATION The indication(s) include : Recurrent chest pain concerning for unstable angina. CSHA Clinical Frailty Scale CSHA Clinical Frailty Scale: Managing Well Heart Failure Heart Failure: No PROCEDURE NARRATIVE After explaining the risks, benefits and alternative options, informed consent was obtained from carmen ent. Patient was brought to the cardiac Intensive Care Nurse and right wrist was prepped and draped in the usual fashion after confirming a positive modified J Carlos's test. Arterial access was obtained in the righ t radial artery and a 6 Fijian sheath was inserted. 6 Fijian Luis catheter was used to perform laura ective angiography of the left and right coronary arteries. 6 Fijian pigtail catheter was used to pe rform left ventriculography. Patient tolerated the procedure well. Hemostasis was achieved using TR band. There were no immediate complications. The following findings were noted. FINDINGS 1. Hemodynamics: Left ventricular end-diastolic pressure of 15 mmHg. No pullback gradient across th e aortic valve. 2. Left ventriculography: Normal left ventricle systolic function with ejection fraction estimated at 60%. No significant mitral regurgitation seen. 3. Coronary angiography: a. The left main coronary artery arose from the left sinus of Valsalva, gave rise to the left anteri or descending and left circumflex arteries and did not show any significant stenosis. b. The left anterior descending artery did not show any significant stenosis. c. The left circumflex artery did not show any significant stenosis. d. The right coronary artery was a large and dominant vessel arising from the right sinus of Valsalv a that did not show any significant stenosis. Conclusion 1. No significant coronary artery disease 2. Normal left ventricle systolic function with ejection fraction estimated at 60% Signed by : González Green, Electronically Approved : 09/29/2019 10:10:40
[2019-09-29] MEDS ORDERED: NITROGLYCERIN SUBLINGUAL 0.4 MG BOTTLE OF 25. SL PRN (10:15)
[2019-09-29] MEDS ORDERED: 0.9 % SODIUM CHLORIDE 10 ML DISP.SYRIN. IV PRN (10:15)
--- NOTE | 2019-09-29 12:45 | NUR ---
report called to [facility]. instructions reviewed with patient. Right wrist dressing changed. armboard reapplied. Pt discharged with guard to correctional facility. Left PIV dc'd
== END 2019-09-29 12:47 ==
LOC: CCL 07:48 → EEVIPCON 10:00 → CCL 12:47
PROVIDERS: ATTEND Internal Medicine Cardiovascular Disease
DX: R07.89 Other chest pain (principal)
CPT/HCPCS: 36415; 80048; 85027; 85610; 93458; 99152; C1769; C1892; J1644; J2250; J3010; J3490; Q9967